=== PATIENT | female | born 1960 | race African-American/Black ===

== ENCOUNTER 2017-10-10 19:42 | Inpatient (IN) | payer MEDICARE, MEDICAID ==
[~2017-10-10] VITALS: Ht 167.6 cm; Wt 87.1 kg
--- NOTE | 2017-10-10 23:45 | NUR ---
ADMITTED A 57 Y/O FEMALE FROM [facility], ON 5150 DTS AND GD, BASED ON HOLD, PATIENT WAS NOT BEEN EATING, SLEEPING, SHOWERING FOR THE LAST WEEK AND ALSO STATED WANTING TO KILL SELF. PATIENT ADMITTING DX. PSYCHOSIS AND MEDICAL DX. HYPERTENSION, HYPERLIPIDEMIA, SUBSTANCE ABUSE. UPON FACE TO FACE EVALUATION, PATIENT APPEARED ALERT AND ORIENTED X 3, CRYING, FOCUSED ON WANTING TO SMOKE, NEEDY, DEMANDING, MANIPULATIVE, RETRACTIBLE, PATIENT STATED HER MOTHER AND SHE MISSED HER. HEAD TO TOE ASSESSMENT DONE. SKIN INTACT. PICTURE DONE. CONSENT SIGNED BY THE PATIENT. PATIENT SEEN AND EXAMINED BY PICKER/PULLER TYLER MURPHY. MEDICATION RECONCILIATION DONE. BELONGINGS CHECKED FOR CONTRABAND AND PLACED TO SAFE. ALL NEEDS ATTENDED AND MET. KEPT CLEAN, DRY AND COMFORTABLE. WILL CONTINUE TO MONITOR [id number] FOR SAFETY
[2017-10-11] MEDS ORDERED: MAG HYDROX/AL HYDROX/SIMETH 30 ML UDC PO PRN (00:30)
[2017-10-11] MEDS ORDERED: MAGNESIUM HYDROXIDE 30 ML UDC PO PRN (00:30)
[2017-10-11 01:23] VITALS: BP 149/99
[2017-10-11] MEDS: LORAZEPAM 0.5 MG TABLET PO PRN ×3 (01:54→20:35)
[2017-10-11] MEDS ORDERED: DIVA-78 PO (07:26)
[2017-10-11] MEDS ORDERED: ATOR80TA PO (07:26)
[2017-10-11] MEDS ORDERED: AMLO5TAB7 PO (07:26)
[2017-10-11] MEDS ORDERED: RISP3TAB14 PO (07:26)
[2017-10-11 08:00] VITALS: BP 121/75
[2017-10-11] MEDS: CEPHALEXIN MONOHYDRATE 500 MG CAPSULE PO SCH ×2 (09:02→21:58)
[2017-10-11] MEDS: AMLODIPINE BESYLATE 5 MG TABLET PO SCH (09:03)
--- NOTE | 2017-10-11 12:33 | NUR ---
GPS/RN-NOTES PATIENT REQUESTING ATIVAN .STATED" I'M AGITATED I NEED ATIVAN". PATIENT IN HER ROOM LAYING IN HER BED.ENCOURAGE TO ATTEND [employer] BUT PATIENT REFUSED. ATIVAN 1MG P.O GIVEN PRN ORDER. WILL CONT. MONITORING FOR SAFETY AND BEHAVIOR.
--- NOTE | 2017-10-11 13:35 | NUR ---
GPS/RN-NOTES PATIENT SLEEPING IN HER BED WITH BREATHING EVEN AND NONLABORED EASILY AROUSES.PATIENT IS CALM AT THIS TIME.
[2017-10-11] MEDS: LIDOCAINE 5% (PATCH) 1 EA PATCH TP SCH ×2 (15:07→15:13)
[2017-10-11] MEDS: ACETAMINOPHEN 325 MG TABLET PO PRN (15:30)
--- NOTE | 2017-10-11 15:31 | NUR ---
GPS/RN-NOTES PATIENT REFUSED LIDODERM PATCH,STATED" IT'S NOT GOING TO WORKING FOR MY BACK,IT'S JUST COOL MY BACK,BUT I CAN TAKE TYLENOL. CAN YOU GIVE ME TYLENOL INSTEAD OF THE PATCH".TYLENOL 650MG P.O GIVEN PRN ORDER.
[2017-10-11 16:00] VITALS: BP 145/86
[2017-10-11] MEDS: risperiDONE 1 MG TABLET PO SCH ×2 (17:00→21:59)
[2017-10-11] MEDS: ATORVASTATIN 40 MG TABLET PO SCH (21:59)
[2017-10-11] MEDS ORDERED: DIVALPROEX SODIUM 500 MG TABLET.DR PO SCH (22:00)
[2017-10-12] MEDS: LORAZEPAM 0.5 MG TABLET PO PRN ×3 (04:47→22:31)
[2017-10-12 08:00] VITALS: BP 137/87
[2017-10-12] MEDS: risperiDONE 1 MG TABLET PO SCH ×3 (08:18→21:01)
[2017-10-12] MEDS: CEPHALEXIN MONOHYDRATE 500 MG CAPSULE PO SCH ×2 (08:19→20:46)
[2017-10-12] MEDS: DIVALPROEX SODIUM 250 MG TABLET.DR PO SCH ×2 (08:19→13:02)
[2017-10-12] MEDS: AMLODIPINE BESYLATE 5 MG TABLET PO SCH (08:20)
[2017-10-12] MEDS: LIDOCAINE 5% (PATCH) 1 EA PATCH TP SCH (08:22)
[2017-10-12 08:51] LABS: BILIRUBIN,TOTAL 0.4 mg/dL (0.2-1.0); POTASSIUM 3.8 mmol/L (3.5-5.1); TOTAL PROTEIN, SERUM 7.2 g/dL (6.4-8.2)
[2017-10-12 08:56] LABS: BASOPHILS % (AUTO) 0.5 % (0.0-2.0); EOSINOPHILS % (AUTO) 4.6 % (0.0-6.0); HEMATOCRIT 40 % (33-45); HEMOGLOBIN 13.4 g/dL (11.5-14.8); LYMPHOCYTES # (AUTO) 2.5 /CMM (0.8-4.8); LYMPHOCYTES % (AUTO) 40.5 % (20.0-44.0); MEAN CORPUSCULAR HGB CONC 34 g/dl (31.0-36.0); MEAN CORPUSCULAR VOLUME 90 fL (82-100); MONOCYTES # (AUTO) 0.4 /CMM (0.1-1.30); MONOCYTES % (AUTO) 6.8 % (2.0-12.0); NEUTROPHILS % (AUTO) 47.6 % (43.0-81.0); PLATELET COUNT (AUTO) 178 /CMM (150-450); RDW COEFFICIENT OF VARIATION 14.8 (11.5-15.0); RED BLOOD CELL COUNT(AUTO) 4.39 MIL/uL (4.0-5.2); WHITE BLOOD COUNT (AUTO) 6.3 K/uL (4.3-11.0)
--- NOTE | 2017-10-12 13:03 | NUR ---
RN NOTE: PATIENT IS ANXIOUS. LORAZEPAM 1MG GIVEN.
[2017-10-12] MEDS: HYDROCODONE/APAP 5/325MG 1 EACH TABLET PO PRN ×2 (15:12→21:37)
--- NOTE | 2017-10-12 15:14 | NUR ---
RN NOTE: PATIENT STATES SHE HAS 9/10 PAIN. PRN 5MG HYDROCODONE GIVEN.
[2017-10-12 16:10] VITALS: BP 151/89
[2017-10-12 20:00] VITALS: BP 121/72
[2017-10-12] MEDS: ATORVASTATIN 40 MG TABLET PO SCH (21:01)
[2017-10-12] MEDS: DIVALPROEX SODIUM 500 MG TABLET.DR PO SCH (22:01)
--- NOTE | 2017-10-12 22:34 | NUR ---
GPS RN NOTE: PATIENT IS ANXIOUS, REQUESTED FOR ATIVAN. VSS. ADMINISTERED ATIVAN 1 MG PO ORDERED. WILL CONTINUE TO MONITOR [id number] FOR SAFETY AND BEHAVIOR.
[2017-10-13 08:00] VITALS: BP 144/91
[2017-10-13] MEDS: CEPHALEXIN MONOHYDRATE 500 MG CAPSULE PO SCH ×2 (08:29→20:41)
[2017-10-13] MEDS: risperiDONE 1 MG TABLET PO SCH ×3 (08:29→21:20)
[2017-10-13] MEDS: AMLODIPINE BESYLATE 5 MG TABLET PO SCH (08:29)
[2017-10-13] MEDS: DIVALPROEX SODIUM 250 MG TABLET.DR PO SCH ×2 (08:30→12:08)
[2017-10-13] MEDS: LIDOCAINE 5% (PATCH) 1 EA PATCH TP SCH (08:31)
[2017-10-13] MEDS: HYDROCODONE/APAP 5/325MG 1 EACH TABLET PO PRN ×3 (08:32→23:24)
--- NOTE | 2017-10-13 08:33 | NUR ---
RN NOTE: PATIENT REPORTS 8/10 PAIN. HYDROCODONE 5 GIVEN PRN.
[2017-10-13] MEDS: LORAZEPAM 0.5 MG TABLET PO PRN (13:03)
--- NOTE | 2017-10-13 13:03 | NUR ---
RN NOTE: PATIENT ANXIOUS. LORAZEPAM 1MG GIVEN.
--- NOTE | 2017-10-13 15:27 | NUR ---
Initial Discharge Plan: Pts address is [address] [address] and # is [phone]; one # is missing on face sheet. Pt however reports having been recently asked by her brother to leave the family home. Pt reports being homeless. Pt also provided her daughter's contact information (i.e. [employer] [phone]) as a possible source of support. Pts daughter lives in [place]. Pt agreed to SW reaching out to her daughter for discharge planning purposes. SW contacted pts daughter, however was unable to speak to anyone; a detailed message was left. SW will follow up to ensure pt is safely and adequately discharged.
[2017-10-13 16:00] VITALS: BP 100/63
--- NOTE | 2017-10-13 16:37 | NUR ---
RN NOTE: PATIENT STATES IN PAIN. HYDROCODONE GIVEN.
[2017-10-13] MEDS: NICOTINE PATCH (14MG) 14 MG PATCH.TD24 TD SCH (17:20)
[2017-10-13 19:58] VITALS: BP 105/64
[2017-10-13] MEDS: DIVALPROEX SODIUM 500 MG TABLET.DR PO SCH (21:20)
[2017-10-13] MEDS: ATORVASTATIN 40 MG TABLET PO SCH (21:20)
--- NOTE | 2017-10-13 23:24 | NUR ---
GPS/RN PATIENT C/O LOWER BACK PAIN, 01/25. PATIENT REQUESTED FOR NORCO. VSS. ADMINISTERED NORCO 5/325MG PO ORDERED. WILL CONTINUE TO MONITOR.
[2017-10-14] MEDS: LORAZEPAM 0.5 MG TABLET PO PRN ×3 (02:26→20:31)
--- NOTE | 2017-10-14 02:26 | NUR ---
GPS/RN PATIENT IS ANXIOUS AND RESTLESS. PATIENT REQUESTING FOR ATIVAN. VSS. ADMINISTERED ATIVAN 1MG PO ORDERED. WILL CONTINUE TO MONITOR [id number] FOR SAFETY AND BEHAVIOR.
[2017-10-14] MEDS: ACETAMINOPHEN 325 MG TABLET PO PRN ×2 (03:42→16:02)
[2017-10-14 08:00] VITALS: BP 145/70
[2017-10-14] MEDS: DIVALPROEX SODIUM 250 MG TABLET.DR PO SCH ×2 (08:40→12:21)
[2017-10-14] MEDS: CEPHALEXIN MONOHYDRATE 500 MG CAPSULE PO SCH ×2 (08:40→20:31)
[2017-10-14] MEDS: AMLODIPINE BESYLATE 5 MG TABLET PO SCH (08:41)
[2017-10-14] MEDS: risperiDONE 1 MG TABLET PO SCH ×3 (08:41→21:11)
[2017-10-14] MEDS: HYDROCODONE/APAP 5/325MG 1 EACH TABLET PO PRN ×2 (08:42→19:17)
[2017-10-14] MEDS: LIDOCAINE 5% (PATCH) 1 EA PATCH TP SCH (08:42)
[2017-10-14] MEDS: NICOTINE PATCH (14MG) 14 MG PATCH.TD24 TD SCH (10:01)
--- NOTE | 2017-10-14 11:27 | NUR ---
Discharge Planning: SW spoke to pts aunt, Garrett Gray for discharge planning purposes. SW asked pts aunt if pt can discharge to her home once she is ready and stable. Pts aunt stated, "There's no one she could stay with, she can't stay with me." In addition SW contacted Elsie Kinney; [phone], pts daughter however was unable to speak to anyone and or leave a message. Voicemail was full and unable to accept any messages. Phone calls to above named people were agreed upon by pt. SW will follow up to ensure pt is safely and adequately discharged.
[2017-10-14 16:00] VITALS: BP 100/73
[2017-10-14 20:00] VITALS: BP 104/65
--- NOTE | 2017-10-14 20:32 | NUR ---
C/O ANXIETY, LORAZEPAM 1 MG PO GIVEN.
[2017-10-14] MEDS: ATORVASTATIN 40 MG TABLET PO SCH (21:11)
[2017-10-14] MEDS: DIVALPROEX SODIUM 500 MG TABLET.DR PO SCH (21:11)
[2017-10-15 08:00] VITALS: BP 108/53
[2017-10-15] MEDS: DIVALPROEX SODIUM 250 MG TABLET.DR PO SCH ×2 (08:37→12:00)
[2017-10-15] MEDS: risperiDONE 1 MG TABLET PO SCH ×3 (08:37→21:00)
[2017-10-15] MEDS: CEPHALEXIN MONOHYDRATE 500 MG CAPSULE PO SCH ×2 (08:38→20:59)
[2017-10-15] MEDS: AMLODIPINE BESYLATE 5 MG TABLET PO SCH (08:38)
[2017-10-15] MEDS: NICOTINE PATCH (14MG) 14 MG PATCH.TD24 TD SCH (08:39)
[2017-10-15] MEDS: LIDOCAINE 5% (PATCH) 1 EA PATCH TP SCH (08:40)
[2017-10-15] MEDS: LORAZEPAM 0.5 MG TABLET PO PRN ×2 (09:13→23:57)
--- NOTE | 2017-10-15 09:15 | NUR ---
GPS/RN NOTE: PATIENT IS ANXIOUS AND RESTLESS REQUESTING FOR ATIVAN. VSS STABLE ADMINISTERED ATIVAN 1MG PO ORDERED. WILL CONTINUE TO MONITOR [id number] FOR SAFETY AND BEHAVIOR.
--- NOTE | 2017-10-15 10:35 | NUR ---
GPS/RN PATIENT C/O LOWER BACK PAIN, 02/25. PATIENT REQUESTED FOR NORCO. VSS. ADMINISTERED NORCO 5/325MG PO ORDERED. WILL CONTINUE TO MONITOR.
[2017-10-15] MEDS: HYDROCODONE/APAP 5/325MG 1 EACH TABLET PO PRN ×2 (10:42→20:00)
--- NOTE | 2017-10-15 11:38 | NUR ---
Discharge Planning: MERARI spoke to Kavita Pinto from [facility], ext. [phone] for discharge planning purposes. MERARI faxed inquiry to for review. Per Kavita, inquiry would be reviewed on Wednesday. MERARI will follow up to ensure pt is safely and adequately discharged.
[2017-10-15] MEDS: ACETAMINOPHEN 325 MG TABLET PO PRN (15:55)
[2017-10-15 16:00] VITALS: BP 106/62
--- NOTE | 2017-10-15 19:30 | NUR ---
GPS RN NOTE, RECEIVED PATIENT AWAKE AND IN BED, NO S/S OR COMPLAINTS OF PAIN AT THIS TIME. PATIENT IS DISPLAYING NO S/S OF APPARENT DISTRESS AT THIS TIME. PATIENT BREATHING IS UNLABORED WITH EQUAL RISE AND FALL OF THE CHEST. PATIENT IS ALERT AND ORIENTED X 3 ON ROOM AIR WITH A SPO2 OF 94%. PATIENT IS COMPLIANT WITH MEDICATION, ANXIOUS AT TIMES, PARANOID, DEMANDING, AND NEEDS REORIENTATION. PATIENT DENIES SUICIDE IDEATIONS AND HOMICIDAL IDEATIONS AT THIS TIME. PATIENT ASSISTED WITH TURNING AND REPOSITIONING Q2HR AND PRN FOR COMFORT AND CIRCULATION. PATIENT HAS NO NEEDS AT THIS TIME. PATIENT EDUCATED ON THE USE OF THE CALL CARY. PATIENT SIDE RAILS ARE UP X 2, BED IS LOCKED AND LOW, AND I WILL CONTINUE TO MONITOR THIS PATIENT Q 15 MIN WITH THE HELP OF STAFF.
[2017-10-15 20:00] VITALS: BP 132/78
--- NOTE | 2017-10-15 20:00 | NUR ---
GPS RN NOTE, PATIENT HAS A COMPLAINT OF LOWER BACK PAIN AT 6 OUT 10 ON THE PAIN SCALE AND IS REQUESTING NORCO AT THIS TIME. PATIENT VITAL SIGNS ARE STABLE. GAVE NORCO 5-325 1 TAB PO Q6HR PRN ORDERED. WILL REASSESS FOR PAIN AND I WILL CONTINUE TO MONITOR THIS PATIENT.
[2017-10-15] MEDS: ATORVASTATIN 40 MG TABLET PO SCH (21:00)
[2017-10-15] MEDS: DIVALPROEX SODIUM 500 MG TABLET.DR PO SCH (21:00)
--- NOTE | 2017-10-15 23:57 | NUR ---
GPS RN NOTE, PATIENT HAS A COMPLAINT OF FEELING ANXIOUS AND IS REQUESTING ATIVAN AT THIS TIME. PATIENT VITAL SIGNS ARE STABLE. GAVE ATIVAN 1MG PO Q8HR PRN ORDERED. WILL REASSESS FOR ANXIETY AND I WILL CONTINUE TO MONITOR THIS PATIENT.
[2017-10-16] MEDS: HYDROCODONE/APAP 5/325MG 1 EACH TABLET PO PRN ×2 (04:59→17:03)
--- NOTE | 2017-10-16 04:59 | NUR ---
GPS RN NOTE, PATIENT HAS A COMPLAINT OF LOWER BACK PAIN AT 5 OUT 10 ON THE PAIN SCALE AND IS REQUESTING NORCO AT THIS TIME. PATIENT VITAL SIGNS ARE STABLE. GAVE NORCO 5-325 1 TAB PO Q6HR PRN ORDERED. WILL REASSESS FOR PAIN AND I WILL CONTINUE TO MONITOR THIS PATIENT.
[2017-10-16 08:00] VITALS: BP 146/75
[2017-10-16] MEDS: CEPHALEXIN MONOHYDRATE 500 MG CAPSULE PO SCH ×2 (08:34→22:21)
[2017-10-16] MEDS: NICOTINE PATCH (14MG) 14 MG PATCH.TD24 TD SCH (08:34)
[2017-10-16] MEDS: AMLODIPINE BESYLATE 5 MG TABLET PO SCH (08:34)
[2017-10-16] MEDS: risperiDONE 1 MG TABLET PO SCH ×3 (08:34→22:20)
[2017-10-16] MEDS: DIVALPROEX SODIUM 250 MG TABLET.DR PO SCH ×2 (08:36→13:23)
[2017-10-16] MEDS: LIDOCAINE 5% (PATCH) 1 EA PATCH TP SCH (09:00)
[2017-10-16] MEDS: LORAZEPAM 0.5 MG TABLET PO PRN ×2 (13:23→19:57)
[2017-10-16 15:52] VITALS: BP 120/59
--- NOTE | 2017-10-16 17:10 | NUR ---
GPS/RN-NOTES PATIENT C/O 8/ LOWER BACK AND REQUESTING FOR NORCO. NORCO 5/325MG P.O GIVEN PRN ORDER. WILL CONT.MONITORING FOR SAFETY.
[2017-10-16 20:00] VITALS: BP 145/81
[2017-10-16] MEDS: DIVALPROEX SODIUM 500 MG TABLET.DR PO SCH (22:20)
[2017-10-16] MEDS: ATORVASTATIN 40 MG TABLET PO SCH (22:21)
[2017-10-16] MEDS: TEMAZEPAM 7.5 MG CAPSULE PO PRN (22:21)
[2017-10-17] MEDS: HYDROCODONE/APAP 5/325MG 1 EACH TABLET PO PRN ×2 (01:16→12:12)
[2017-10-17 08:00] VITALS: BP 150/84
[2017-10-17] MEDS: risperiDONE 1 MG TABLET PO SCH ×3 (08:19→22:33)
[2017-10-17] MEDS: NICOTINE PATCH (14MG) 14 MG PATCH.TD24 TD SCH (08:19)
[2017-10-17] MEDS: CEPHALEXIN MONOHYDRATE 500 MG CAPSULE PO SCH ×2 (08:19→22:07)
[2017-10-17] MEDS: LORAZEPAM 0.5 MG TABLET PO PRN ×2 (08:20→16:59)
[2017-10-17] MEDS: AMLODIPINE BESYLATE 5 MG TABLET PO SCH (08:20)
[2017-10-17] MEDS: LIDOCAINE 5% (PATCH) 1 EA PATCH TP SCH (08:21)
[2017-10-17] MEDS: DIVALPROEX SODIUM 250 MG TABLET.DR PO SCH ×2 (08:23→12:12)
[2017-10-17] MEDS: ACETAMINOPHEN 325 MG TABLET PO PRN (15:19)
[2017-10-17 16:00] VITALS: BP 141/84
[2017-10-17 20:15] VITALS: BP 115/78
[2017-10-17] MEDS: DIVALPROEX SODIUM 500 MG TABLET.DR PO SCH (22:08)
[2017-10-17] MEDS: ATORVASTATIN 40 MG TABLET PO SCH (22:08)
[2017-10-17] MEDS: TEMAZEPAM 7.5 MG CAPSULE PO PRN (22:09)
--- NOTE | 2017-10-17 22:11 | NUR ---
TEMAZEPAM 7.5 MG CAP PO GIVEN
[2017-10-18] MEDS: HYDROCODONE/APAP 5/325MG 1 EACH TABLET PO PRN ×4 (00:46→19:42)
--- NOTE | 2017-10-18 00:48 | NUR ---
C/O ACHY BACK PAIN, 7/10 ON PAIN SCALE, NORCO 5/325 MG TAB PO GIVEN.
[2017-10-18] MEDS: LORAZEPAM 0.5 MG TABLET PO PRN ×3 (02:00→16:43)
--- NOTE | 2017-10-18 02:02 | NUR ---
PATIENT C/O ANXIETY, LORAZEPAM 0.5 MG TAB 1 PO GIVEN.
[2017-10-18 08:00] VITALS: BP 165/87
[2017-10-18] MEDS: LIDOCAINE 5% (PATCH) 1 EA PATCH TP SCH (08:55)
[2017-10-18] MEDS: CEPHALEXIN MONOHYDRATE 500 MG CAPSULE PO SCH ×2 (08:56→21:00)
[2017-10-18] MEDS: NICOTINE PATCH (14MG) 14 MG PATCH.TD24 TD SCH (08:56)
[2017-10-18] MEDS: DIVALPROEX SODIUM 250 MG TABLET.DR PO SCH ×2 (08:56→12:29)
[2017-10-18] MEDS: risperiDONE 1 MG TABLET PO SCH ×3 (08:56→21:22)
[2017-10-18] MEDS: ACETAMINOPHEN 325 MG TABLET PO PRN (08:56)
--- NOTE | 2017-10-18 08:56 | NUR ---
GPS/RN PATIENT ANXIOUS, RESTLESS, HYPERVERBAL, ADMINISTERED ATIVAN 0.5 MG PER PATIENT REQUEST. WILL CONTINUE TO MONITOR. Addendum: 10/18/17 at 1428 by MEL ROMO RN JIM ROMO
[2017-10-18] MEDS: AMLODIPINE BESYLATE 5 MG TABLET PO SCH (08:57)
--- NOTE | 2017-10-18 09:00 | NUR ---
GPS/RN PATIENT REPORTS 11/25 HEADACHE, ADMINISTERED TYLENOL 650 MG PER PATIENT REQUEST, WILL CONTINUE TO MONITOR. Addendum: 10/18/17 at 1428 by MEL ROMO RN JIM ROMO
--- NOTE | 2017-10-18 10:00 | NUR ---
GPS/RN NOTE THAT VARIOUS A.M. CHARTING AND A.M. MEDS WERE CHARTED UNDER JIM George BY MISTAKE.
[2017-10-18 16:00] VITALS: BP 114/71
--- NOTE | 2017-10-18 16:43 | NUR ---
GPS/RN PATIENT ANXIOUS, RESTLESS, CRYING, ADMINISTERED ATIVAN 0.5 MG, WILL CONTINUE TO MONITOR.
--- NOTE | 2017-10-18 18:35 | NUR ---
GPS/RN PATENT REPORTS 02/25 BACK PAIN, ADMINISTERED NORCO 5 1 TAB, WILL CONTINUE TO MONITOR. Addendum: 10/18/17 at 1837 by MEL ROMO RN ADMINISTERED AT 0927
--- NOTE | 2017-10-18 19:10 | NUR ---
GPS RN NOTE, RECEIVED PATIENT AWAKE AND IN BED, PATIENT HAS A COMPLAINT OF LOWER BACK PAIN AT 5 OUT 10 ON THE PAIN SCALE. PATIENT IS TAKING ORAL PAIN MEDICATION FOR THIS PAIN. PATIENT IS DISPLAYING NO S/S OF APPARENT DISTRESS AT THIS TIME. PATIENT BREATHING IS UNLABORED WITH EQUAL RISE AND FALL OF THE CHEST. PATIENT IS ALERT AND ORIENTED X 3 ON ROOM AIR WITH A SPO2 OF 94%. PATIENT IS COMPLIANT WITH MEDICATION, ANXIOUS AT TIMES, PARANOID, DEMANDING, AND NEEDS REORIENTATION. PATIENT DENIES SUICIDE IDEATIONS AND HOMICIDAL IDEATIONS AT THIS TIME. PATIENT ASSISTED WITH TURNING AND REPOSITIONING Q2HR AND PRN FOR COMFORT AND CIRCULATION. PATIENT HAS NO NEEDS AT THIS TIME. PATIENT EDUCATED ON THE USE OF THE CALL CARY. PATIENT SIDE RAILS ARE UP X 2, BED IS LOCKED AND LOW, AND I WILL CONTINUE TO MONITOR THIS PATIENT Q 15 MIN WITH THE HELP OF STAFF.
--- NOTE | 2017-10-18 19:42 | NUR ---
GPS RN NOTE, PATIENT HAS A COMPLAINT OF LOWER BACK PAIN AT 7 OUT 10 ON THE PAIN SCALE AND IS REQUESTING NORCO AT THIS TIME. PATIENT VITAL SIGNS ARE STABLE. GAVE NORCO 5-325 1 TAB PO Q6HR PRN ORDERED. WILL REASSESS FOR PAIN AND I WILL CONTINUE TO MONITOR THIS PATIENT.
[2017-10-18 19:48] VITALS: BP 146/98
[2017-10-18] MEDS: ATORVASTATIN 40 MG TABLET PO SCH (21:22)
--- NOTE | 2017-10-18 21:31 | NUR ---
GPS RN NOTE, PATIENT REUSED TO TAKE KEFLEX 500MG PO Q12HR. OFFERED KEFLEX THREE TIMES AND STILL PATIENT REFUSED STATING, " I DON'T NEED THAT MEDICATION ANY MORE ". EDUCATED PATIENT ON THE RISKS AND BENEFITS OF TAKING AND REFUSING AFOREMENTIONED MEDICATION. KEFLEX CAPSULE PACKAGE WAS OPENED AT THE TIME I OFFERED IT TO THE PATIENT. KEFLEX 500MG WASTED IN THE PROPER BIN. WILL CONTINUE TO MONITOR THIS PATIENT.
[2017-10-18] MEDS ORDERED: DIVALPROEX SODIUM 250 MG TABLET.DR PO SCH (22:00)
[2017-10-19] MEDS: LORAZEPAM 0.5 MG TABLET PO PRN ×2 (02:52→11:10)
--- NOTE | 2017-10-19 02:52 | NUR ---
GPS RN NOTE, PATIENT HAS A COMPLAINT OF FEELING ANXIOUS AND IS REQUESTING ATIVAN AT THIS TIME. PATIENT VITAL SIGNS ARE STABLE. GAVE ATIVAN 0.5MG PO Q8HR PRN ORDERED. WILL REASSESS FOR ANXIETY AND I WILL CONTINUE TO MONITOR THIS PATIENT.
[2017-10-19 08:00] VITALS: BP 130/89
[2017-10-19] MEDS: AMLODIPINE BESYLATE 5 MG TABLET PO SCH (08:46)
[2017-10-19] MEDS: HYDROCODONE/APAP 5/325MG 1 EACH TABLET PO PRN ×2 (08:46→20:58)
[2017-10-19] MEDS: risperiDONE 1 MG TABLET PO SCH ×3 (08:46→21:22)
[2017-10-19] MEDS: NICOTINE PATCH (14MG) 14 MG PATCH.TD24 TD SCH (08:47)
[2017-10-19] MEDS: LIDOCAINE 5% (PATCH) 1 EA PATCH TP SCH (08:47)
[2017-10-19] MEDS ORDERED: DIVALPROEX SODIUM 250 MG TABLET.DR PO SCH ×2 (09:00→13:00)
[2017-10-19] MEDS: ACETAMINOPHEN 325 MG TABLET PO PRN (11:21)
--- NOTE | 2017-10-19 12:35 | NUR ---
MERARI attempted to contact Kavita Pinto from [facility], ext. [phone] for discharge planning purposes. MERARI left a detailed voicemail with direct contact information. MERARI will follow-up.
[2017-10-19] MEDS: DIVALPROEX SODIUM 250 MG TABLET.DR PO SCH ×2 (12:40→21:21)
--- NOTE | 2017-10-19 14:48 | NUR ---
MERARI spoke to Kavita Pinto from [facility], ext. [phone] who stated that she was going to speak to Annette from admissions and would confirm tomorrow morning. MERARI will follow-up.
--- NOTE | 2017-10-19 14:51 | NUR ---
SW attempted to contact patient's daughter Elsie Kinney; [phone]. However, she was unavailable and her voicemail box was full, SW unable to leave a message. MERARI will attempt again later.
[2017-10-19 15:57] VITALS: BP 146/85
[2017-10-19 21:05] VITALS: BP 121/57
[2017-10-19] MEDS: ATORVASTATIN 40 MG TABLET PO SCH (21:22)
[2017-10-20] MEDS: LORAZEPAM 0.5 MG TABLET PO PRN ×3 (03:26→22:23)
[2017-10-20 08:00] VITALS: BP 129/73
[2017-10-20] MEDS: NICOTINE PATCH (14MG) 14 MG PATCH.TD24 TD SCH (08:26)
[2017-10-20] MEDS: DIVALPROEX SODIUM 250 MG TABLET.DR PO SCH ×3 (08:26→21:20)
[2017-10-20] MEDS: LIDOCAINE 5% (PATCH) 1 EA PATCH TP SCH (08:27)
[2017-10-20] MEDS: HYDROCODONE/APAP 5/325MG 1 EACH TABLET PO PRN ×2 (08:27→14:52)
[2017-10-20] MEDS: AMLODIPINE BESYLATE 5 MG TABLET PO SCH (08:27)
[2017-10-20] MEDS: risperiDONE 1 MG TABLET PO SCH ×3 (08:27→21:20)
--- NOTE | 2017-10-20 12:34 | NUR ---
MERARI spoke to Kavita Pinto from [facility], ext. [phone] to follow up on referral submitted. Kavita Pinto transferred call to Annette ext. [phone] who stated that she did not receive referral. MERARI re-faxed inquiry to for review. Annette will call MERARI by end of day with review status.
--- NOTE | 2017-10-20 12:39 | NUR ---
SW attempted to contact patient's daughter Elsie Kinney; [phone]. However, she was unavailable and her voicemail box was full, SW unable to leave a message. MERARI will attempt again later.
[2017-10-20] MEDS: ACETAMINOPHEN 325 MG TABLET PO PRN (12:56)
--- NOTE | 2017-10-20 13:28 | NUR ---
SW spoke with patient to inform her that she was waiting on [facility] to review referral. Patient stated that she did not want to go to a treatment center and to try a senior living first before a treatment center.
[2017-10-20 16:00] VITALS: BP 139/75
--- NOTE | 2017-10-20 16:07 | NUR ---
MERARI received a call from Carmen Pacheco [phone] (patients aunt) because she had received a call from [facility]. MERARI informed aunt that she has been attempting to contact daughter Elsie. Carmen informed MERARI that she would inform Elsie that SW has been attempting to contact her.
[2017-10-20 20:22] VITALS: BP 126/80
[2017-10-20] MEDS: ATORVASTATIN 40 MG TABLET PO SCH (21:20)
--- NOTE | 2017-10-20 22:32 | NUR ---
GPS RN NOTE, PATIENT C/O OF FEELING ANXIOUS AND IS REQUESTING ATIVAN AT THIS TIME. PATIENT VITAL SIGNS ARE STABLE. GAVE ATIVAN 0.5MG PO PRN ORDERED. WILL REASSESS FOR ANXIETY AND I WILL CONTINUE TO MONITOR THIS PATIENT.
[2017-10-21] MEDS: HYDROCODONE/APAP 5/325MG 1 EACH TABLET PO PRN ×2 (01:51→06:55)
[2017-10-21 08:00] VITALS: BP 123/77
--- NOTE | 2017-10-21 08:00 | NUR ---
GPS RN AM NOTES RECEIVED PATIENT COMFORTABLY SLEEPING IN BED BUT AROUSABLE, PATIENT IS DISPLAYING NO S/S OF APPARENT DISTRESS AT THIS TIME. PATIENT BREATHING IS UNLABORED WITH EQUAL RISE AND FALL OF THE CHEST. PATIENT IS ALERT AND ORIENTED X 3 ON ROOM AIR WITH A SPO2 OF 94%. PATIENT IS COMPLIANT WITH MEDICATION, ANXIOUS AT TIMES, PARANOID, DEMANDING, AND NEEDS REORIENTATION. PATIENT DENIES SUICIDE IDEATIONS AND HOMICIDAL IDEATIONS AT THIS TIME. PATIENT ABLE TO TURN ON HER OWN IN BED.AMB AD JOI WITH STEADY GAIT.PATIENT HAS NO NEEDS AT THIS TIME. PATIENT SIDE RAILS ARE UP X 2, BED IS LOCKED AND LOW, AND I WILL CONTINUE TO MONITOR THIS PATIENT Q 15 MIN WITH THE HELP OF STAFF.
[2017-10-21 08:28] VITALS: BP 123/77
[2017-10-21] MEDS: AMLODIPINE BESYLATE 5 MG TABLET PO SCH (08:28)
[2017-10-21] MEDS: NICOTINE PATCH (14MG) 14 MG PATCH.TD24 TD SCH ×2 (08:28→09:00)
[2017-10-21] MEDS: risperiDONE 1 MG TABLET PO SCH (08:28)
[2017-10-21] MEDS: DIVALPROEX SODIUM 250 MG TABLET.DR PO SCH ×2 (08:28→12:18)
[2017-10-21] MEDS: LIDOCAINE 5% (PATCH) 1 EA PATCH TP SCH ×2 (08:28→09:00)
--- NOTE | 2017-10-21 12:25 | NUR ---
MERARI contacted Carmen Junior [phone] (patients aunt) to inform her that patient will be discharged today 10/21/17 at 2:30pm and will be discharged to [place] for [facility] [address] [place] [address]. Carmen stated that she will not be visiting patient and that she would inform patients daughter.
--- NOTE | 2017-10-21 12:28 | NUR ---
SW attempted to contact patient's daughter Elsie Kinney; [phone] to inform her of patients discharge. However, she was unavailable and her voicemail box was full, SW unable to leave a message.
[2017-10-21] MEDS: LORAZEPAM 0.5 MG TABLET PO PRN (12:35)
--- NOTE | 2017-10-21 12:51 | NUR ---
SW attempted to contact Kavita Pinto from [facility], ext. [phone] and Annette ext. [phone] to follow up on review status. SW unable to reach them and left a voicemail.
--- NOTE | 2017-10-21 12:52 | NUR ---
SW attempted to contact Annette ext. [phone] From [facility] to inquire on review status. Unable to reach; left a voicemail.
--- NOTE | 2017-10-21 12:53 | NUR ---
MERARI informed patient that she was being discharged today 10/21/17 at 2:30pm to [place] for [facility] [address] [place] [address]. [facility] [address]. Patient stated that she did not want to go to a snf and that she wanted to go to a treatment center. MERARI stated to patient that [facility] did not have availability and that she must got to a snf. Patient was distressed stating that her aunt and daughter advised her not to go to a snf due to her current substance abuse addiction and that going to a snf would be a bad idea. MERARI informed patient that she had informed aunt Carmen about patient being released to a snf and that she was okay with that. Patient was questioning snf location and asked SW to let her see the snf MERARI mentioned to patient that she would provide treatment center resources upon discharge.
--- NOTE | 2017-10-21 14:43 | NUR ---
Daughter Elsie contacted MERARI to express she was in disagreement with patients discharge to [facility]. Elsie stated that she wanted patient to go to a treatment center instead of fci. MERARI explained to Elsie that [facility] did not accept patient. Also MERARI contacted [facility] and unfortunately, facility does not accept patient's insurance for residential treatment. MERARI informed daughter that patient would be given three treatment center referrals upon discharge. At this point Elsie questioned why SW was not doing more to treat patients addiction and MERARI stated to Elsie that yesterday patient had mentioned to MERARI that she did not want to enter treatment and that she preferred going to a fci. Elsie requested to speak to MERARI parachute supervisor to express her concerns with patients discharge. MERARI provided Elsie with supervisors Mayra Vázquez's direct office line [phone]. MERARI asked Elsie if she would be able to pepper picker patient upon discharge and she stated that she could not.
--- NOTE | 2017-10-21 14:45 | NUR ---
DISCHARGED PT TO [place] FOR [facility] VIA [facility]AXI ([address] [employer] [address] WITH STABLE V/S.CHECKED ALL PT'S BELONGINGS AND WAS BROUGHT BY PT UPON DISCHARGE.NOTIFIED DEANDRE LEONARD OF THE DISCHARGE WITH NO NEW ORDERS OR PRESCRIPTION.PT WAS SEEN BY DR YANG WITH PRESCRIPTIONS HANDED TO THE PT.PT AMB AD JOI WITH STEADY GAIT.PT INSISTS TO HAVE NORCO BUT PER GPS AND HOSPITAL POLICY WE CAN'T DISCHARGED A PT GIVING NARCOTIC PRIOR TO DISCHARGE.PT REFUSED LIDOCAINE PATCH AND NICODERM PATCH.
--- NOTE | 2017-10-21 15:00 | NUR ---
SW asked patient if she could afford to live in a sober living facility. Patient stated that she could not afford to pay for a sober living and she only had $400-$500 and knew that sober living facilities were expensive. Patient stated that she wanted to go to a fci and then she would seek treatment at a treatment center.
--- NOTE | 2017-10-21 15:02 | NUR ---
Discharge Note: Patient will be discharged today 10/21/17 at 2:30pm and will be transported to [facility] [address], [place] [id number] via taxi voucher. Patient has intake appointment at 4:00pm with Natasha who is holding a bed for patient. Patient was agitated and upset after receiving her prescription by the nurse and seeing that she was not prescribed [place]. Patient stated that she was going to call the [facility] because the psychiatrist was refusing to prescribe her [place]. Patient was anxious and wanted to leave unit as soon as possible because she wanted to smoke. SW explained to patient that this hospital was a smoke free facility and due to hospital protocol she needed to wait until the taxi was outside to be able to leave. Patient understood and was calm and cooperative with MERARI and signed Homeless Patient Waver Form. MERARI provided patient with three referrals to treatment centers [facility] [[email or web address] Center: [address] [place] [address] , [facility]:[address] [place] [address] , [facility]:[address] [place] [address] . Patient will be going to [facility] for an intake on 10/22/17 at 10:00am. Patient denied Suicidal/homicidal ideation. Patient was advised to make an appointment with her psychiatrist Dr. Meghan Adams at [facility] [address] [place] [address] . MERARI also provided patient with resources to food jensen, mental health centers, [facility], and [facility]. For smoking cessation, patient was referred to the [employer] or [employer] 416-Iuiv-WBA. MERARI facilitated info to IDT team who are in agreement with discharge arrangement. The multidisciplinary exitcare form was done, printed, signed, and given to the patient.
== END 2017-10-21 14:45 | disposition home or self-care (01) | DRG 885 ==
LOC: GPS 23:36
PROVIDERS: ADMIT Psychiatry & Neurology Psychosomatic Medicine; ATTEND Psychiatry & Neurology Psychosomatic Medicine
DX: F25.0 Schizoaffective disorder, bipolar type (principal); F29 Unspecified psychosis not due to a substance or known physiological condition; E78.5 Hyperlipidemia, unspecified; N39.0 Urinary tract infection, site not specified; Z73.6 Limitation of activities due to disability; I10 Essential (primary) hypertension; F17.200 Nicotine dependence, unspecified, uncomplicated; F12.10 Cannabis abuse, uncomplicated; F14.10 Cocaine abuse, uncomplicated; G89.29 Other chronic pain; Z79.899 Other long term (current) drug therapy
CPT/HCPCS: 36415; 80053-TC; 80061-TC; 80164-TC; 85025-TC; 87081-TC